=== PATIENT | male | born 1960 | race Caucasian/White ===

== ENCOUNTER 2024-10-08 14:11 | Inpatient (IN) | payer MEDICAID ==
[~2024-10-08] VITALS: Ht 188 cm; Wt 78.5 kg
[2024-10-08 14:13] VITALS: O2SAT 96
[2024-10-08 14:41] LABS: BASOPHILS % 0.5 % (0.0-2.0); EOSINOPHILS % 0.4 % (0.0-5.0); HEMATOCRIT. 34.0 % (42.0-52.0); HEMOGLOBIN. 11.7 g/dL (14.0-18.0); LYMPHOCYTES % 13.5 % (20.0-50.0); MEAN PLATELET VOLUME 7.6 fl (7.4-10.4); MONOCYTES % 14.3 % (2.0-8.0); NEUTROPHILS % 71.3 % (40.0-76.0); PLATELET 161 x1000/uL (130-400); RED BLOOD CELL COUNT 3.54 mill/uL (4.7-6.1); RED CELL DISTRIBUTION WIDTH 12.9 % (11.6-14.6)
[2024-10-08] MEDS: CARBIDOPA/LEVODOPA 25/250MG TABLET PO ONE (14:51)
[2024-10-08] MEDS: LORAZEPAM 2MG/ML UD SYRINGE IV SCH (14:52)
[2024-10-08 15:11] LABS: CREATININE 0.7 mg/dL (0.6-1.3)
[2024-10-08 15:12] LABS: TROPONIN I HIGH SENSITIVITY < 4 ng/L (3.0-53); UREA NITROGEN BLOOD 19 mg/dL (9-23)
[2024-10-08 19:40] VITALS: BP 120/56; PULSE 55; RESP 19; TEMP 36.6404
[2024-10-08 20:00] VITALS: BP 120/56; PULSE 50; RESP 19; TEMP 36.6; O2SAT 97
[2024-10-08] MEDS ORDERED: TRAMADOL 50MG TABLET PO PRN (20:30)
[2024-10-08] MEDS ORDERED: MAGNESIUM/ALUMINUM HYDROXIDE/SIMETHICONE 30ML UDC PO PRN (20:30)
[2024-10-08] MEDS ORDERED: ONDANSETRON HCL 4MG/2ML INJ IV PRN (20:30)
[2024-10-08] MEDS ORDERED: ACETAMINOPHEN 325MG TABLET PO PRN (20:30)
[2024-10-08] MEDS ORDERED: DIPHENHYDRAMINE 50MG/ML VIAL IV PRN (20:30)
[2024-10-08] MEDS ORDERED: NALOXONE HCL 0.4MG/ML VIAL IV PRN (20:45)
[2024-10-08] MEDS: ENOXAPARIN 40MG/0.4ML SYR SUBCUT SCH (21:27)
[2024-10-08] MEDS: SODIUM CHLORIDE 0.9% 3ML FLUSH IVF SCH (21:27)
[2024-10-08] MEDS: ZOLPIDEM TARTRATE 5MG TABLET PO PRN (21:28)
[2024-10-08] MEDS: CARBIDOPA/LEVODOPA 25/100MG TABLET PO SCH (21:28)
[2024-10-09] VITALS: BP 98/52; PULSE 72; RESP 20; TEMP 36.5; O2SAT 97
[2024-10-09 00:36] LABS: *AMPHETAMINES SCREEN URINE NEGATIVE (NEGATIVE); *BARBITURATES SCREEN URINE NEGATIVE (NEGATIVE); *BENZODIAZEPINES SCREEN URINE NEGATIVE (NEGATIVE); *COCAINE SCREEN URINE NEGATIVE (NEGATIVE); CANNABINOID URINE SCREEN NEGATIVE (NEGATIVE); ECSTASY MDMA SCREEN URINE NEGATIVE (NEGATIVE); METHADONE URINE SCREEN NEGATIVE (NEGATIVE); OPIATES URINE SCREEN NEGATIVE (NEGATIVE); PHENCYCLIDINE URINE SCREEN NEGATIVE (NEGATIVE)
[2024-10-09 04:00] VITALS: BP 105/55; PULSE 66; RESP 20; TEMP 36.4; O2SAT 97
[2024-10-09 08:00] VITALS: BP 103/50; PULSE 50; RESP 18; TEMP 36.7; O2SAT 96
[2024-10-09 09:15] LABS: T4 FREE 1.07 ng/dL (0.89-1.76)
[2024-10-09 12:00] VITALS: BP 102/58; PULSE 44; RESP 18; TEMP 36.4; O2SAT 97
[2024-10-09] MEDS: ACETAMINOPHEN 325MG TABLET PO PRN (14:37)
[2024-10-09 16:00] VITALS: BP 101/55; PULSE 44; RESP 18; TEMP 36.4; O2SAT 97
[2024-10-09 20:00] VITALS: BP 102/62; PULSE 70; RESP 19; TEMP 36.3; O2SAT 97
[2024-10-10] VITALS: BP 113/63; PULSE 44; RESP 18; TEMP 36.2; O2SAT 98
[2024-10-10 04:00] VITALS: BP 117/57; PULSE 52; RESP 20; TEMP 36.3; O2SAT 100
[2024-10-10 08:00] VITALS: BP 97/55; PULSE 60; RESP 20; TEMP 36.4; O2SAT 94
[2024-10-10 08:32] LABS: VITAMIN B12 SERUM 472 pg/mL (211-911)
[2024-10-10] MEDS: BENZTROPINE MESYLATE 1MG TABLET PO SCH (09:14)
[2024-10-10 12:00] VITALS: BP 103/60; PULSE 58; RESP 18; TEMP 36.1; O2SAT 96
[2024-10-10] MEDS: KETOROLAC 30MG/ML VIAL IV PRN (14:27)
[2024-10-10 16:00] VITALS: BP 107/58; PULSE 47; RESP 18; TEMP 36.1; O2SAT 96
[2024-10-10 20:00] VITALS: BP 109/57; PULSE 55; RESP 18; TEMP 36.6; O2SAT 96
[2024-10-11] VITALS: BP 106/59; PULSE 49; RESP 18; TEMP 36.7; O2SAT 96
[2024-10-11 04:00] VITALS: BP 102/60; PULSE 52; RESP 18; TEMP 36.8; O2SAT 96
[2024-10-11 06:31] LABS: ASPARTATE AMINOTRANSFERASE 15 IU/L (<34); BILIRUBIN DIRECT 0.2 mg/dL (<=3.0); BILIRUBIN TOTAL 0.6 mg/dL (0.1-1.0); PROTEIN TOTAL 6.9 g/dL (6.0-8.3)
[2024-10-11 08:00] VITALS: BP 108/54; PULSE 56; RESP 20; TEMP 36.5; O2SAT 99
[2024-10-11 12:00] VITALS: BP 96/52; PULSE 51; RESP 18; TEMP 36.1; O2SAT 99
[2024-10-11 16:00] VITALS: BP 96/50; PULSE 55; RESP 20; TEMP 36.4; O2SAT 95
[2024-10-11 20:00] VITALS: BP 102/56; PULSE 57; RESP 18; TEMP 36.7; O2SAT 95
[2024-10-12] VITALS (7 sets, daily range): BP systolic 91–115; BP diastolic 50–62; PULSE 52–61; RESP 16–19; TEMP 35.9–36.7; O2SAT 95–98
[2024-10-13] VITALS: BP 95/57; PULSE 47; RESP 18; TEMP 35.3; O2SAT 95
[2024-10-13 04:00] VITALS: BP 106/58; PULSE 76; RESP 18; TEMP 36.2; O2SAT 98
[2024-10-13 12:00] VITALS: BP 100/63; PULSE 57; RESP 16; TEMP 36.4; O2SAT 99
[2024-10-13 16:00] VITALS: BP 127/55; PULSE 53; RESP 19; TEMP 36.6; O2SAT 97
[2024-10-14] VITALS: BP 113/55; PULSE 60; RESP 18; TEMP 36.7; O2SAT 96
[2024-10-14 04:00] VITALS: BP_DIAS 109; PULSE 72; RESP 18; TEMP 36.6; O2SAT 98
[2024-10-14 08:00] VITALS: BP 106/48; PULSE 43; RESP 18; TEMP 36.3; O2SAT 99
[2024-10-14 12:00] VITALS: BP 128/59; PULSE 48; RESP 18; TEMP 36.4; O2SAT 98
[2024-10-14 16:00] VITALS: BP 104/52; PULSE 49; RESP 18; TEMP 36.6; O2SAT 99
[2024-10-14] MEDS ORDERED: BENZ1TAB79 MT (16:06)
[2024-10-14 20:00] VITALS: BP 91/49; PULSE 53; RESP 18; TEMP 36.6; O2SAT 95
[2024-10-15] VITALS (7 sets, daily range): BP systolic 85–105; BP diastolic 52–60; PULSE 50–97; RESP 16–18; TEMP 36.4–36.6; O2SAT 93–99
[2024-10-15] MEDS ORDERED: SINCR21 PO (16:12)
== END 2024-10-15 17:39 | disposition home or self-care (01) | DRG 42 ==
LOC: ER 14:11 → EDBEDREQ 16:02 → ENRESERV 17:55 → 7WST 18:32 → 7EST 10-12 14:02
PROVIDERS: ADMIT Internal Medicine; ATTEND Internal Medicine
DX: G20.A1 Parkinson's disease without dyskinesia, without mention of fluctuations (principal); H54.7 Unspecified visual loss; R00.1 Bradycardia, unspecified
CPT/HCPCS: 36415; 80048; 80076; 80305; 82140; 82607; 83735; 84439; 84443; 84484; 85025; 97116; 97162; 97166; 99285; A4606; J1650; J1885; J2060

== ENCOUNTER 2024-12-09 09:50 | Emergency (ER) | payer MEDICAID ==
[~2024-12-09] VITALS: Ht 172.7 cm; Wt 73.0 kg
[~2024-12-09 09:50] MED LIST: BENZ1TAB79 MT; SINCR21 PO
[2024-12-09 09:51] VITALS: O2SAT 99
[2024-12-09] MEDS ORDERED: APIX2.5T MT (09:58)
[2024-12-09] MEDS ORDERED: HYOS-14 MT (09:58)
[2024-12-09] MEDS ORDERED: VALP250C3 MT (09:58)
[2024-12-09] MEDS ORDERED: HALO5TAB MT (09:58)
[2024-12-09] MEDS ORDERED: BO1 TP (11:13)
[2024-12-09] MEDS: IBUPROFEN 400MG TABLET PO ONE (11:42)
[2024-12-09] MEDS: BACITRACIN ZINC OINT UDPKT TOP ONE (11:43)
[2024-12-09 11:56] VITALS: BP 116/60; PULSE 55; RESP 16; TEMP 36.8; O2SAT 98
== END 2024-12-09 11:59 | disposition home or self-care (01) ==
LOC: ER 09:59
DX: R21 Rash and other nonspecific skin eruption (principal); F20.9 Schizophrenia, unspecified; Z79.899 Other long term (current) drug therapy
CPT/HCPCS: 99283